=== PATIENT | male | born 1985 | race African-American/Black ===

== ENCOUNTER 2020-08-27 10:25 | Emergency (ER) | payer MEDICAID ==
[~2020-08-27] VITALS: Ht 180.3 cm; Wt 142.1 kg
[2020-08-27] MEDS ORDERED: CLONIDINE 0.2MG TABLET PO NR (13:45)
[2020-08-27 15:55] LABS: BASOPHILS % 0.9 % (0.0-2.0); EOSINOPHILS % 1.9 % (0.0-5.0); HEMATOCRIT. 39.5 % (42.0-52.0); LYMPHOCYTES % 37.7 % (20.0-50.0); MEAN CORPUSCULAR HEMOGLOBIN 28.8 pg (28.0-32.0); MEAN CORPUSCULAR VOLUME 87.4 fL (80.0-94.0); MEAN PLATELET VOLUME 8.7 fl (7.4-10.4); MONOCYTES % 7.3 % (2.0-8.0); NEUTROPHILS % 52.2 % (40.0-76.0); PLATELET 239 x1000/uL (130-400); RED BLOOD CELL COUNT 4.52 mill/uL (4.7-6.1); RED CELL DISTRIBUTION WIDTH 13.7 % (11.6-14.6)
[2020-08-27 15:57] LABS: CHLORIDE 105 mEq/L (98-107)
[2020-08-27] MEDS ORDERED: LABETALOL HCL 100MG TABLET PO ONE ×2 (16:15)
[2020-08-27 16:47] VITALS: BP 150/108
== END 2020-08-27 16:47 | disposition home or self-care (01) ==
LOC: ER 10:51
DX: I16.0 Hypertensive urgency (principal); M79.605 Pain in left leg; M79.604 Pain in right leg; J45.909 Unspecified asthma, uncomplicated; Z98.890 Other specified postprocedural states
CPT/HCPCS: 36415; 71045; 80053; 83605; 83880; 84484; 85025; 93005; 93970; 99291

== ENCOUNTER 2024-07-08 16:48 | Inpatient (IN) | payer MEDICAID ==
[~2024-07-08] VITALS: Ht 180.3 cm; Wt 142.9 kg
[2024-07-08 18:19] LABS: HEMATOCRIT 41.1 % (42.0-52.0); HEMOGLOBIN 13.3 g/dL (14.0-18.0); MEAN CORPUSCULAR HEMOGLOBIN 29.6 pg (28.0-32.0); MEAN CORPUSCULAR HGB CONC 32.3 g/dL (31.0-37.0); MEAN CORPUSCULAR VOLUME 91.7 fL (80.0-94.0); PLATELET 235 x1000/uL (130-400); RED BLOOD CELL COUNT 4.48 mill/uL (4.7-6.1); RED CELL DISTRIBUTION WIDTH 15.3 % (11.6-14.6)
[2024-07-08 18:24] LABS: CHLORIDE 105 mEq/L (98-107); SODIUM 140 mEq/L (136-145)
[2024-07-08 18:25] LABS: CALCIUM 9.4 mg/dL (8.7-10.4); CARBON DIOXIDE 29 mEq/L (21-32)
[2024-07-08 18:30] LABS: CREATININE 1.4 mg/dL (0.6-1.3); GLUCOSE 98 mg/dL (70-105); UREA NITROGEN BLOOD 15 mg/dL (9-23)
[2024-07-08 18:33] LABS: TROPONIN I HIGH SENSITIVITY 133 ng/L (3.0-53)
[2024-07-08] MEDS: ASPIRIN 325MG EC TABLET PO NR (19:00)
[2024-07-08] MEDS: ENOXAPARIN 150MG/ML SYR SUBCUT NR (19:00)
[2024-07-08] MEDS: CARVEDILOL 6.25 MG TABLET PO NR (20:23)
[2024-07-08] MEDS ORDERED: MAGNESIUM/ALUMINUM HYDROXIDE/SIMETHICONE 30ML UDC PO PRN (21:45)
[2024-07-08] MEDS ORDERED: ONDANSETRON HCL 4MG/2ML INJ IV PRN (21:45)
[2024-07-08] MEDS ORDERED: ACETAMINOPHEN 325MG TABLET PO PRN ×2 (21:45)
[2024-07-08] MEDS ORDERED: DOCUSATE SODIUM 100MG CAPSULE PO PRN (21:45)
[2024-07-08] MEDS: FUROSEMIDE 40MG TABLET PO SCH (22:00)
[2024-07-08 22:56] LABS: CLARITY URINE CLEAR (CLEAR); COLOR URINE YELLOW (YELLOW); GLUCOSE URINE NEGATIVE (NEGATIVE); KETONES URINE NEGATIVE (NEGATIVE); LEUKOCYTE ESTERASE URINE NEGATIVE (NEGATIVE); NITRITE URINE NEGATIVE (NEGATIVE); OCCULT BLOOD URINE NEGATIVE (NEGATIVE); PH URINE 5.5 (4.5-8.0); PROTEIN URINE NEGATIVE (NEGATIVE)
[2024-07-08 23:13] LABS: *AMPHETAMINES SCREEN URINE NEGATIVE (NEGATIVE); *BARBITURATES SCREEN URINE NEGATIVE (NEGATIVE); *BENZODIAZEPINES SCREEN URINE NEGATIVE (NEGATIVE); *COCAINE SCREEN URINE NEGATIVE (NEGATIVE); CANNABINOID URINE SCREEN PRESUMPTIVE POSITIVE (NEGATIVE); METHADONE URINE SCREEN NEGATIVE (NEGATIVE); OPIATES URINE SCREEN NEGATIVE (NEGATIVE); PHENCYCLIDINE URINE SCREEN NEGATIVE (NEGATIVE)
[2024-07-08 23:14] LABS: ECSTASY MDMA SCREEN URINE NEGATIVE (NEGATIVE)
[2024-07-09] MEDS ORDERED: ROSU10CA PO (01:01)
[2024-07-09] MEDS ORDERED: POTA-185 PO (01:01)
[2024-07-09] MEDS ORDERED: FURO40TA5 PO (01:01)
[2024-07-09] MEDS ORDERED: CARV12.545 PO (01:01)
[2024-07-09] MEDS ORDERED: FURO20TA4 PO (01:01)
[2024-07-09 01:16] LABS: TROPONIN I HIGH SENSITIVITY 97 ng/L (3.0-53)
[2024-07-09 02:26] VITALS: PULSE 95; RESP 22; O2SAT 90
[2024-07-09] MEDS: IPRATROPIUM/ALBUTEROL 0.5-3(2.5)MG/3ML NEB HHN PRN (02:26)
[2024-07-09 05:17] LABS: CHLORIDE 107 mEq/L (98-107); SODIUM 141 mEq/L (136-145)
[2024-07-09 05:18] LABS: CALCIUM 9.3 mg/dL (8.7-10.4); CARBON DIOXIDE 27 mEq/L (21-32)
[2024-07-09 05:23] LABS: CREATININE 1.2 mg/dL (0.6-1.3); GLUCOSE 106 mg/dL (70-105); TRIGLYCERIDE 108 mg/dL (0-150); UREA NITROGEN BLOOD 18 mg/dL (9-23)
[2024-07-09 05:24] LABS: ALANINE AMINOTRANSFERASE 82 IU/L (10-49); LDL CHOLESTEROL 82 mg/dL (5-100)
[2024-07-09 05:25] LABS: ALBUMIN 3.9 g/dL (3.2-4.8); ASPARTATE AMINOTRANSFERASE 68 IU/L (<34); BILIRUBIN DIRECT 0.3 mg/dL (<=3.0); BILIRUBIN TOTAL 1.2 mg/dL (0.1-1.0); CHOLESTEROL 129 mg/dL (<200); HDL CHOLESTEROL 30 mg/dL (>55); PROTEIN TOTAL 6.1 g/dL (6.0-8.3)
[2024-07-09 05:29] LABS: T4 FREE 1.29 ng/dL (0.89-1.76); THYROID STIMULATING HORMONE 2.68 uIU/mL (0.55-4.78)
[2024-07-09 05:39] LABS: TROPONIN I HIGH SENSITIVITY 86 ng/L (3.0-53)
[2024-07-09 08:39] VITALS: PULSE 93; RESP 18; TEMP 36.72516; O2SAT 99
[2024-07-09 08:54] VITALS: BP 123/84; PULSE 93; RESP 18; TEMP 36.7516
[2024-07-09] MEDS: FUROSEMIDE 40MG/4ML VIAL IVP SCH (09:30)
[2024-07-09] MEDS: CARVEDILOL 12.5MG TABLET PO SCH (09:32)
[2024-07-09] MEDS: ENOXAPARIN 30MG/0.3ML SYR SUBCUT SCH (09:35)
[2024-07-09 12:00] VITALS: BP 133/85; PULSE 94; RESP 16; TEMP 36.28068; O2SAT 97
[2024-07-09 16:00] VITALS: BP 139/100; PULSE 102; RESP 16; TEMP 36.22512; O2SAT 98
[2024-07-09 20:00] VITALS: BP 141/95; PULSE 97; RESP 20; TEMP 36.72516; O2SAT 99
[2024-07-10] VITALS: BP 126/76; PULSE 96; RESP 20; TEMP 36.61404; TEMP 36.6696; O2SAT 98; O2SAT 99
[2024-07-10 04:00] VITALS: BP_SYST 126; BP_SYST 133; BP_DIAS 76; BP_DIAS 78; PULSE 96; RESP 20; TEMP 36.61404; TEMP 36.6696; O2SAT 98
[2024-07-10 07:22] LABS: CARBON DIOXIDE 27 mEq/L (21-32); CHLORIDE 104 mEq/L (98-107); POTASSIUM 4.1 mEq/L (3.5-5.1); SODIUM 139 mEq/L (136-145)
[2024-07-10 07:23] LABS: CALCIUM 9.3 mg/dL (8.7-10.4)
[2024-07-10 07:27] LABS: CREATININE 1.2 mg/dL (0.6-1.3)
[2024-07-10 07:28] LABS: GLUCOSE 113 mg/dL (70-105); UREA NITROGEN BLOOD 14 mg/dL (9-23)
[2024-07-10 07:30] LABS: PHOSPHORUS 3.6 mg/dL (2.5-4.9)
[2024-07-10 07:33] LABS: HEMATOCRIT 40.6 % (42.0-52.0); HEMOGLOBIN 13.2 g/dL (14.0-18.0); MEAN CORPUSCULAR HEMOGLOBIN 29.5 pg (28.0-32.0); MEAN CORPUSCULAR HGB CONC 32.5 g/dL (31.0-37.0); MEAN CORPUSCULAR VOLUME 90.5 fL (80.0-94.0); PLATELET 203 x1000/uL (130-400); RED BLOOD CELL COUNT 4.48 mill/uL (4.7-6.1); RED CELL DISTRIBUTION WIDTH 14.9 % (11.6-14.6); WHITE BLOOD COUNT 4.5 x1000/uL (4.5-11.0)
[2024-07-10 08:00] VITALS: BP 129/76; PULSE 96; RESP 18; TEMP 36.55848; O2SAT 98
[2024-07-10 09:43] LABS: HEPATITIS B SURFACE ANTIGEN NEGATIVE (Negative)
[2024-07-10 10:04] LABS: HEPATITIS C AB NON REACTIVE (Neg) (Negative)
[2024-07-10] MEDS: GUAIFENESIN 200MG/10ML SUGAR FREE UDC PO PRN (10:54)
[2024-07-10 12:00] VITALS: BP 141/99; PULSE 98; RESP 22; TEMP 36.83628; O2SAT 98
[2024-07-10 12:14] LABS: BG BASE EXCESS 1.5 mmol/L (-2.0-3.0); BG CARBOXYHEMOGLOBIN 0.9 % (0.5-1.5); BG DEOXYHEMOGLOBIN 4.8 % (0.0-5.0); BG FRACTION INSPIRED OXYGEN 21; BG HCO3 ACT 25.9 mmol/L (21.0-28.0); BG OXYGEN SATURATION 95.2 % (94.0-98.0); BG OXYHEMOGLOBIN 94.3 % (94.0-98.0); BG PCO2 40.1 mmHg (35.0-48.0); BG PH 7.428 (7.350-7.450); BG PO2 78.5 mmHg (83.0-108.0); BG SAMPLE SITE RIGHT RADIAL; BG TOTAL HEMOGLOBIN 14.3 g/dL (13.5-17.5); BG VENT MODE ROOM AIR
[2024-07-10 16:00] VITALS: BP 157/106; PULSE 95; RESP 27; TEMP 36.78072; O2SAT 96
[2024-07-10] MEDS: CLONIDINE 0.1MG TABLET PO PRN (17:35)
[2024-07-10 20:00] VITALS: BP 143/92; PULSE 91; RESP 22; TEMP 36.9474; O2SAT 99
[2024-07-11] VITALS: BP 131/95; PULSE 92; RESP 20; TEMP 36.78072; O2SAT 98
[2024-07-11 04:00] VITALS: BP 109/63; PULSE 99; RESP 19; TEMP 36.61404; O2SAT 96
[2024-07-11 07:29] LABS: CHLORIDE 104 mEq/L (98-107); POTASSIUM 4.2 mEq/L (3.5-5.1); SODIUM 138 mEq/L (136-145)
[2024-07-11 07:30] LABS: CARBON DIOXIDE 25 mEq/L (21-32)
[2024-07-11 07:31] LABS: CALCIUM 9.4 mg/dL (8.7-10.4)
[2024-07-11 07:35] LABS: CREATININE 1.2 mg/dL (0.6-1.3); GLUCOSE 106 mg/dL (70-105)
[2024-07-11 07:36] LABS: UREA NITROGEN BLOOD 12 mg/dL (9-23)
[2024-07-11 07:38] LABS: PHOSPHORUS 3.4 mg/dL (2.5-4.9)
[2024-07-11 08:00] VITALS: BP 147/87; PULSE 99; RESP 23; TEMP 36.72516; O2SAT 98
[2024-07-11 08:06] LABS: HEMATOCRIT 41.2 % (42.0-52.0); HEMOGLOBIN 13.6 g/dL (14.0-18.0); MEAN CORPUSCULAR HEMOGLOBIN 29.7 pg (28.0-32.0); MEAN CORPUSCULAR HGB CONC 32.9 g/dL (31.0-37.0); PLATELET 228 x1000/uL (130-400); RED BLOOD CELL COUNT 4.57 mill/uL (4.7-6.1); RED CELL DISTRIBUTION WIDTH 14.9 % (11.6-14.6); WHITE BLOOD COUNT 4.2 x1000/uL (4.5-11.0)
[2024-07-11] MEDS: LOSARTAN 25 MG TABLET PO SCH (10:30)
[2024-07-11 11:40] VITALS: BP 150/97; PULSE 90; TEMP 98.1; O2SAT 97
[2024-07-11 12:00] VITALS: BP 150/97; PULSE 97; RESP 20; TEMP 36.72516; O2SAT 97
== END 2024-07-11 14:00 | disposition home or self-care (01) | DRG 194 ==
LOC: ER 16:48 → EDBEDREQ 18:53 → MICUSO 21:11 → EDBEDREQ 21:21 → EDBEDREQTM 21:21 → 5WST 07-09 07:58 → 3WST 07-10 14:17
PROVIDERS: ADMIT Internal Medicine; ATTEND Internal Medicine
DX: I11.0 Hypertensive heart disease with heart failure (principal); J96.01 Acute respiratory failure with hypoxia; I21.A1 Myocardial infarction type 2; I50.23 Acute on chronic systolic (congestive) heart failure; D64.9 Anemia, unspecified; E66.01 Morbid (severe) obesity due to excess calories; G47.33 Obstructive sleep apnea (adult) (pediatric); J45.909 Unspecified asthma, uncomplicated; I16.0 Hypertensive urgency; E78.5 Hyperlipidemia, unspecified; Z59.00 Homelessness unspecified; Z87.891 Personal history of nicotine dependence; Z91.148 Patient's other noncompliance with medication regimen for other reason; Z79.899 Other long term (current) drug therapy; Z68.41 Body mass index [BMI] 40.0-44.9, adult
CPT/HCPCS: 36415; 36600; 71045; 80048; 80061; 80076; 80305; 81003; 82375; 82805; 83735; 83880; 84100; 84439; 84443; 84484; 85027; 86705; 87340; 93005; 93306; 94640; 99291; J1650; J1940